=== PATIENT | female | born 1985 | race Caucasian/White ===

== ENCOUNTER 2021-04-24 13:43 | Emergency (ER) | payer SELFPAY ==
[~2021-04-24] VITALS: Ht 165.1 cm; Wt 77.1 kg
--- NOTE | 2021-04-24 13:57 | NUR ---
PT BIB [place] FROM [place], [place] ST[place],C/O BODY PAIN,ETOH. PT A/OX2 AT THIS TIME. TOLERATING R/A WELL WITH NO SOB. DENIES N/V/D. CONNECTED PT TO POX AND MONITOR.
--- NOTE | 2021-04-24 14:29 | NUR ---
BS 78
[2021-04-24 16:39] VITALS: BP 145/92
== END 2021-04-24 17:18 | disposition home or self-care (01) ==
LOC: ER 13:46
DX: F10.129 Alcohol abuse with intoxication, unspecified (principal); Y90.9 Presence of alcohol in blood, level not specified
CPT/HCPCS: 82962-TC